=== PATIENT | male | born 1955 | race Hispanic/Latino ===

== ENCOUNTER 2017-09-11 22:11 | Inpatient (IN) | payer OTHER, SELFPAY ==
[~2017-09-11] VITALS: Ht 172.7 cm; Wt 90.4 kg
[2017-09-11] MEDS ORDERED: ONDANSETRON HCL MDV 20ML 2 MG/ML VIAL ONE (22:58)
[2017-09-11] MEDS ORDERED: SODIUM CHLORIDE 0.9% 1000ML 1,000 ML IV ONE (22:58)
[2017-09-11] MEDS ORDERED: MORPHINE SULFATE 4 MG/1ML SYG ONE ×2 (22:59→23:53)
[2017-09-11 23:26] LABS: BASOPHILS % (AUTO) 0.4 % (0.0-5.0); EOSINOPHILS % (AUTO) 0.4 % (0.0-8.0); HEMATOCRIT 47.1 % (42-54); LYMPHOCYTES % (AUTO) 10.8 % (21.0-51.0); MEAN CORPUSCULAR HGB CONC 33.9 g/dL (32.0-36.0); MEAN CORPUSCULAR VOLUME 91.3 fL (79-99); MONOCYTES % (AUTO) 8.4 % (3.0-13.0); PLATELET COUNT (AUTO) 242 K/uL (130-400); RED BLOOD CELL COUNT(AUTO) 5.16 MIL/uL (4.50-6.20); RED CELL DISTRIBUTION WIDTH 13.5 % (11.0-15.5); WHITE BLOOD COUNT (AUTO) 16.7 K/uL (4.8-10.8)
[2017-09-11 23:27] LABS: POTASSIUM 4.3 mmol/L (3.5-5.1)
[2017-09-11 23:29] LABS: CREATININE 3.7 mg/dL (0.5-1.5)
[2017-09-11 23:34] LABS: ALBUMIN 3.6 g/dL (3.5-5.0); BILIRUBIN,TOTAL 0.6 mg/dL (0.2-1.0); TOTAL PROTEIN, SERUM 7.5 g/dL (6.0-8.3)
[2017-09-11] MEDS ORDERED: LEVOFLOXACIN 500 MG/D5W 100 ML 100 ML ONE (23:53)
[2017-09-12] VITALS (10 sets, daily range): BP systolic 114–143; BP diastolic 68–95
[2017-09-12] MEDS ORDERED: MORPHINE SULFATE 4 MG/1ML SYG IM PRN
[2017-09-12] MEDS ORDERED: ONDANSETRON HCL MDV 20ML 2 MG/ML VIAL IVP PRN
[2017-09-12] MEDS ORDERED: HYDROMORPHONE 1 MG/1 ML AMP ONE (00:30)
[2017-09-12] MEDS: SODIUM CHLORIDE 0.9% 1000ML 1,000 ML IV SCH ×2 (04:30→17:28)
[2017-09-12] MEDS: ZOSYN 3.375GM+NS 50ML 50 ML IV SCH ×3 (05:46→20:43)
[2017-09-12] MEDS: MORPHINE SULFATE 4 MG/1ML SYG IVP PRN ×4 (06:45→21:28)
[2017-09-12] MEDS ORDERED: HYDROMORPHONE 1 MG/1 ML AMP IVP PRN (08:45)
[2017-09-12] MEDS ORDERED: SODIUM CHLORIDE 0.9% 1000ML 1,000 ML IV ONE (12:00)
[2017-09-12 12:18] LABS: HEMATOCRIT 44.2 % (42-54); MEAN CORPUSCULAR HEMOGLOBIN 30.8 pg (27.0-33.0); MEAN CORPUSCULAR HGB CONC 33.3 g/dL (32.0-36.0); MEAN CORPUSCULAR VOLUME 92.4 fL (79-99); PLATELET COUNT (AUTO) 229 K/uL (130-400); RED BLOOD CELL COUNT(AUTO) 4.78 MIL/uL (4.50-6.20); RED CELL DISTRIBUTION WIDTH 13.5 % (11.0-15.5); WHITE BLOOD COUNT (AUTO) 12.1 K/uL (4.8-10.8)
[2017-09-12] MEDS ORDERED: HYDROMORPHONE HCL 0.5 MG/0.5 ML ML ONE (12:37)
[2017-09-12 12:41] LABS: CREATININE 4.5 mg/dL (0.5-1.5); MAGNESIUM 2.8 mg/dL (1.80-2.40); POTASSIUM 4.3 mmol/L (3.5-5.1)
[2017-09-12 14:21] LABS: PARTIAL THROMBOPLASTIN TIME 30.3 SEC (26.3-35.5); PROTHROMBIN TIME 10.5 SEC (9.6-11.6)
[2017-09-12] MEDS ORDERED: LIDOCAINE HCL 1% 20 ML VIAL ONE ×2 (14:24→15:07)
[2017-09-12] MEDS ORDERED: ISOVUE-300 100 ML VIAL IV ONE (14:25)
[2017-09-12] MEDS ORDERED: FENTANYL CITRATE PF 50 MCG/1 ML 2ML VIAL ONE (14:57)
[2017-09-12 22:46] LABS: APPEARANCE,URINE Clear (CLEAR); BILIRUBIN,URINE Negative (NEGATIVE); COLOR,URINE Yellow (YELLOW); GLUCOSE, URINE (UA) Negative (NEGATIVE); KETONES,URINE Negative (NEGATIVE); LEUKOCYTE ESTERASE ,URINE Negative (NEGATIVE); NITRATE,URINE Negative (NEGATIVE); OCCULT BLOOD,URINE Large (NEGATIVE); PROTEIN,URINE Negative (NEGATIVE); UROBILINOGEN,URINE 0.2 mg/dL (0.2-1.0)
[2017-09-12 23:00] LABS: AMORPHOUS SEDIMENT,UR Moderate /LPF (None Seen); BACTERIA,URINE None Seen /HPF (None Seen); MUCUS,URINE Few LPF (None Seen); SQUAMOUS EPITHELIAL CELL,UR Moderate /HPF (0-2); WBC,URINE None Seen /HPF (0-1)
[2017-09-12] MEDS ORDERED: ACETAMINOPHEN 325 MG TAB PO PRN (23:30)
[2017-09-12] MEDS ORDERED: ACETAMINOPHEN 325 MG TAB ONE (23:30)
[2017-09-13] VITALS (23 sets, daily range): BP systolic 109–147; BP diastolic 56–82
[2017-09-13] MEDS: SODIUM CHLORIDE 0.9% 1000ML 1,000 ML IV SCH (05:29)
[2017-09-13] MEDS: ZOSYN 3.375GM+NS 50ML 50 ML IV SCH ×4 (05:29→20:57)
[2017-09-13 06:22] LABS: HEMATOCRIT 38.9 % (42-54); MEAN CORPUSCULAR HEMOGLOBIN 31.5 pg (27.0-33.0); MEAN CORPUSCULAR HGB CONC 34.4 g/dL (32.0-36.0); MEAN CORPUSCULAR VOLUME 91.7 fL (79-99); PLATELET COUNT (AUTO) 194 K/uL (130-400); RED BLOOD CELL COUNT(AUTO) 4.25 MIL/uL (4.50-6.20); RED CELL DISTRIBUTION WIDTH 13.3 % (11.0-15.5); WHITE BLOOD COUNT (AUTO) 11.2 K/uL (4.8-10.8)
[2017-09-13 06:46] LABS: MAGNESIUM 2.8 mg/dL (1.80-2.40); PHOSPHORUS 3.6 mg/dL (2.5-4.9); POTASSIUM 4.1 mmol/L (3.5-5.1)
[2017-09-13] MEDS: MORPHINE SULFATE 4 MG/1ML SYG IVP PRN ×2 (07:07→08:27)
[2017-09-13] MEDS ORDERED: HYDROMORPHONE HCL 0.5 MG/0.5 ML ML ONE (08:08)
[2017-09-13] MEDS ORDERED: HYDROMORPHONE HCL 0.5 MG/0.5 ML ML IVP SCH ×2 (09:15→11:15)
[2017-09-13] MEDS ORDERED: TRAMADOL HCL 50 MG TABLET PO PRN (09:45)
[2017-09-13] MEDS ORDERED: HYDROMORPHONE HCL 2 MG/ML VIAL IVP ONE (10:45)
[2017-09-13] MEDS ORDERED: HYDROMORPHONE HCL 2 MG/ML VIAL IVP SCH (11:00)
[2017-09-13] MEDS ORDERED: ISOVUE-370 50ML VIAL IV ONE (12:05)
[2017-09-13] MEDS ORDERED: MEPERIDINE-PF 25 MG/ML SYG ONE ×3 (12:20→14:37)
[2017-09-13] MEDS ORDERED: LIDOCAINE PF 2% 5ML ABBOJECT ONE (12:45)
[2017-09-13] MEDS ORDERED: FENTANYL CITRATE PF 50 MCG/1 ML 2ML VIAL ONE ×2 (12:45→13:18)
[2017-09-13] MEDS ORDERED: MIDAZOLAM HCL 1 MG/ML 2ML VIAL ONE (12:45)
[2017-09-13] MEDS ORDERED: PROPOFOL 10 MG/ML 20ML VIAL IV ONE (12:45)
[2017-09-13] MEDS ORDERED: DEXAMETHASONE SOD PHOSPHATE 10MG/ML 1ML VIAL ONE (12:45)
[2017-09-13] MEDS ORDERED: GLYCOPYRROLATE 0.2 MG/ML 5 ML VIAL ONE (12:45)
[2017-09-13] MEDS ORDERED: EPHEDRINE SULFATE 50 MG/ML AMPULE ONE (13:03)
[2017-09-13] MEDS: TAMSULOSIN HCL 0.4 MG CAP.ER.24H PO SCH (17:19)
[2017-09-13] MEDS: FOLIC ACID/VITAMIN B COMP W-C 1 MG CAPSULE PO SCH (17:19)
[2017-09-13] MEDS: HYDROMORPHONE HCL 0.5 MG/0.5 ML ML IVP PRN (23:32)
[2017-09-14 04:00] VITALS: BP 100/51
[2017-09-14] MEDS: ZOSYN 3.375GM+NS 50ML 50 ML IV SCH ×3 (05:03→21:15)
[2017-09-14] MEDS: HYDROMORPHONE HCL 0.5 MG/0.5 ML ML IVP PRN ×3 (05:49→21:16)
[2017-09-14 06:03] LABS: HEMATOCRIT 36.2 % (42-54); MEAN CORPUSCULAR HGB CONC 35.7 g/dL (32.0-36.0); MEAN CORPUSCULAR VOLUME 92.3 fL (79-99); PLATELET COUNT (AUTO) 196 K/uL (130-400); RED BLOOD CELL COUNT(AUTO) 3.92 MIL/uL (4.50-6.20); RED CELL DISTRIBUTION WIDTH 13.5 % (11.0-15.5); WHITE BLOOD COUNT (AUTO) 9.5 K/uL (4.8-10.8)
[2017-09-14 06:12] LABS: CREATININE 3.1 mg/dL (0.5-1.5); POTASSIUM 3.6 mmol/L (3.5-5.1)
[2017-09-14] MEDS: SODIUM CHLORIDE 0.9% 1000ML 1,000 ML IV SCH ×3 (08:09→21:15)
[2017-09-14] MEDS: FOLIC ACID/VITAMIN B COMP W-C 1 MG CAPSULE PO SCH (08:09)
[2017-09-14] MEDS: TAMSULOSIN HCL 0.4 MG CAP.ER.24H PO SCH (08:09)
[2017-09-14] MEDS: ACETAMINOPHEN-CODEINE 300/30MG TAB PO PRN (08:26)
[2017-09-14 09:27] VITALS: BP 110/73
[2017-09-14] MEDS: POTASSIUM CHLORIDE 20 MEQ ERTAB PO SCH (10:59)
[2017-09-14 12:10] VITALS: BP 132/71
[2017-09-14 15:49] VITALS: BP 108/69
[2017-09-14 19:54] VITALS: BP 152/80
[2017-09-14] MEDS: MEPERIDINE-PF 75 MG/ML SYG IM PRN (23:35)
[2017-09-14 23:52] VITALS: BP 148/86
[2017-09-15 04:00] VITALS: BP 123/68
[2017-09-15] MEDS: HYDROMORPHONE HCL 0.5 MG/0.5 ML ML IVP PRN ×4 (04:35→20:46)
[2017-09-15] MEDS: ZOSYN 3.375GM+NS 50ML 50 ML IV SCH ×3 (04:56→20:45)
[2017-09-15 06:42] LABS: CREATININE 2.3 mg/dL (0.5-1.5); POTASSIUM 4.1 mmol/L (3.5-5.1)
[2017-09-15 07:30] VITALS: BP 145/87
[2017-09-15] MEDS: FOLIC ACID/VITAMIN B COMP W-C 1 MG CAPSULE PO SCH (08:21)
[2017-09-15] MEDS: POTASSIUM CHLORIDE 20 MEQ ERTAB PO SCH (08:21)
[2017-09-15] MEDS: TAMSULOSIN HCL 0.4 MG CAP.ER.24H PO SCH (08:21)
[2017-09-15] MEDS: SODIUM CHLORIDE 0.9% 1000ML 1,000 ML IV SCH ×2 (08:25→20:46)
[2017-09-15] MEDS: ACETAMINOPHEN-CODEINE 300/30MG TAB PO PRN (08:34)
[2017-09-15 11:00] VITALS: BP 101/60
[2017-09-15 16:00] VITALS: BP 126/86
[2017-09-15 20:00] VITALS: BP 126/73
[2017-09-15] MEDS: OXYBUTYNIN CHLORIDE 5 MG TABLET PO PRN (22:33)
[2017-09-15 23:45] VITALS: BP 139/90
[2017-09-16] MEDS: MEPERIDINE-PF 75 MG/ML SYG IM PRN (00:35)
[2017-09-16 04:00] VITALS: BP 141/85
[2017-09-16] MEDS: ZOSYN 3.375GM+NS 50ML 50 ML IV SCH ×3 (05:02→22:19)
[2017-09-16 05:46] LABS: CREATININE 2.1 mg/dL (0.5-1.5); POTASSIUM 4.2 mmol/L (3.5-5.1)
[2017-09-16 08:00] VITALS: BP 137/85
[2017-09-16] MEDS: SODIUM CHLORIDE 0.9% 1000ML 1,000 ML IV SCH ×3 (08:54→22:43)
[2017-09-16] MEDS: TAMSULOSIN HCL 0.4 MG CAP.ER.24H PO SCH (08:55)
[2017-09-16] MEDS: HYDROMORPHONE HCL 0.5 MG/0.5 ML ML IVP PRN ×3 (08:55→23:56)
[2017-09-16] MEDS: FOLIC ACID/VITAMIN B COMP W-C 1 MG CAPSULE PO SCH (08:55)
[2017-09-16 10:14] LABS: APPEARANCE,URINE SL CLOUDY (CLEAR); BILIRUBIN,URINE NEGATIVE (NEGATIVE); COLOR,URINE RED (YELLOW); GLUCOSE, URINE (UA) NEGATIVE (NEGATIVE); KETONES,URINE NEGATIVE (NEGATIVE); LEUKOCYTE ESTERASE ,URINE SMALL (NEGATIVE); NITRATE,URINE NEGATIVE (NEGATIVE); OCCULT BLOOD,URINE LARGE (NEGATIVE); PH,URINE 5.5 (5.0-8.0); PROTEIN,URINE TRACE (NEGATIVE); UROBILINOGEN,URINE 0.2 mg/dL (0.2-1.0)
[2017-09-16 10:20] LABS: BACTERIA,URINE Rare /HPF (None Seen); RBC,URINE TNTC /HPF (0-1); SQUAMOUS EPITHELIAL CELL,UR Rare /HPF (0-2); WBC,URINE 0-1 /HPF (0-1)
[2017-09-16] MEDS: POTASSIUM CHLORIDE 20 MEQ ERTAB PO SCH (10:33)
[2017-09-16] MEDS: OXYBUTYNIN CHLORIDE 5 MG TABLET PO PRN (11:27)
[2017-09-16] MEDS: ACETAMINOPHEN-CODEINE 300/30MG TAB PO PRN (11:27)
[2017-09-16 14:20] VITALS: BP 143/76
[2017-09-16 17:52] VITALS: BP 140/74
[2017-09-16 20:00] VITALS: BP 125/72
[2017-09-17] VITALS: BP 139/83
[2017-09-17 04:00] VITALS: BP 145/75
[2017-09-17] MEDS: ZOSYN 3.375GM+NS 50ML 50 ML IV SCH ×2 (05:55→13:23)
[2017-09-17] MEDS: HYDROMORPHONE HCL 0.5 MG/0.5 ML ML IVP PRN (06:04)
[2017-09-17 06:28] LABS: BASOPHILS % (AUTO) 0.6 % (0.0-5.0); EOSINOPHILS % (AUTO) 7.3 % (0.0-8.0); LYMPHOCYTES % (AUTO) 22.9 % (21.0-51.0); MEAN CORPUSCULAR HEMOGLOBIN 31.5 pg (27.0-33.0); MEAN CORPUSCULAR HGB CONC 34.2 g/dL (32.0-36.0); MEAN CORPUSCULAR VOLUME 92.3 fL (79-99); MONOCYTES % (AUTO) 9.8 % (3.0-13.0); NEUTROPHILS % (AUTO) 59.4 % (40.0-77.0); PLATELET COUNT (AUTO) 239 K/uL (130-400); RED BLOOD CELL COUNT(AUTO) 4.01 MIL/uL (4.50-6.20); RED CELL DISTRIBUTION WIDTH 13.6 % (11.0-15.5); WHITE BLOOD COUNT (AUTO) 8.4 K/uL (4.8-10.8)
[2017-09-17 06:36] LABS: CREATININE 1.9 mg/dL (0.5-1.5); MAGNESIUM 1.7 mg/dL (1.80-2.40); PHOSPHORUS 3.7 mg/dL (2.5-4.9); POTASSIUM 4.1 mmol/L (3.5-5.1)
[2017-09-17 08:00] VITALS: BP 132/86
[2017-09-17] MEDS: ACETAMINOPHEN-CODEINE 300/30MG TAB PO PRN ×2 (09:37→18:09)
[2017-09-17] MEDS: TAMSULOSIN HCL 0.4 MG CAP.ER.24H PO SCH (09:38)
[2017-09-17] MEDS: FOLIC ACID/VITAMIN B COMP W-C 1 MG CAPSULE PO SCH (09:38)
[2017-09-17] MEDS: POTASSIUM CHLORIDE 20 MEQ ERTAB PO SCH (09:44)
[2017-09-17] MEDS: SODIUM CHLORIDE 0.9% 1000ML 1,000 ML IV SCH (13:24)
[2017-09-17 14:34] VITALS: BP 128/73
[2017-09-17] MEDS ORDERED: Folic Acid/Vitamin B Comp W-C PO (15:02)
[2017-09-17] MEDS ORDERED: TYL3B PO (15:02)
[2017-09-17] MEDS ORDERED: TAMS-1 PO (15:02)
[2017-09-17] MEDS ORDERED: OXYB5 PO (15:02)
[2017-09-17] MEDS ORDERED: AMOX-429 PO (15:04)
[2017-09-17 16:24] VITALS: BP 131/74
== END 2017-09-17 18:50 | disposition home or self-care (01) | DRG 853 ==
LOC: EDH 22:11 → EDHIP 23:52 → 4CH 09-12 01:58
PROVIDERS: ADMIT Internal Medicine Nephrology; ATTEND Internal Medicine Nephrology
PROC: 0TJB8ZZ Inspection of Bladder, Via Natural or Artificial Opening Endoscopic (ICD-10-PCS; principal; 2017-09-12)
PROC: 0T748DZ Dilation of Left Kidney Pelvis with Intraluminal Device, Via Natural or Artificial Opening Endoscopic (ICD-10-PCS; 2017-09-13 12:50)
DX: A41.9 Sepsis, unspecified organism (principal); N17.0 Acute kidney failure with tubular necrosis; N17.9 Acute kidney failure, unspecified; N13.2 Hydronephrosis with renal and ureteral calculous obstruction; F12.90 Cannabis use, unspecified, uncomplicated; D64.9 Anemia, unspecified; E66.9 Obesity, unspecified; F17.200 Nicotine dependence, unspecified, uncomplicated; I12.9 Hypertensive chronic kidney disease with stage 1 through stage 4 chronic kidney disease, or unspecified chronic kidney disease; N18.9 Chronic kidney disease, unspecified; R31.0 Gross hematuria
CPT/HCPCS: 10030; 36415; 50432; 74176; 74420; 76870; 80048; 80053; 81001; 82360; 83735; 83970; 84100; 84550; 85025; 85027; 85610; 85730; 87040; 87088; 88300; 93005; A4218; A4344; A4606; C1729; C1751; C1758; C1769; C1894; C2617; J1100; J1170; J1644; J1956; J2001; J2175; J2250; J2270; J2543; J2704; J3010; J3490; J7030; Q9967

== ENCOUNTER 2017-10-04 19:18 | Emergency (ER) | payer OTHER ==
[~2017-10-04 19:18] MED LIST: AMOX-429 PO; Folic Acid/Vitamin B Comp W-C PO; OXYB5 PO; TAMS-1 PO; TYL3B PO
[2017-10-04 19:56] LABS: APPEARANCE,URINE Cloudy (CLEAR); BILIRUBIN,URINE Negative (NEGATIVE); COLOR,URINE Yellow (YELLOW); GLUCOSE, URINE (UA) Negative (NEGATIVE); KETONES,URINE Negative (NEGATIVE); LEUKOCYTE ESTERASE ,URINE Large (NEGATIVE); NITRATE,URINE Negative (NEGATIVE); OCCULT BLOOD,URINE Small (NEGATIVE); PROTEIN,URINE POS 2+ (NEGATIVE); UROBILINOGEN,URINE 0.2 mg/dL (0.2-1.0)
[2017-10-04 20:11] LABS: TRIPLE PHOSPHATE CRYSTAL,UR Rare /LPF (None Seen)
[2017-10-04 20:12] LABS: BACTERIA,URINE Moderate /HPF (None Seen); YEAST,URINE BUDDING Few /HPF (None Seen)
[2017-10-04] MEDS ORDERED: MORPHINE SULFATE 4 MG/1ML SYG ONE (21:19)
[2017-10-04] MEDS ORDERED: ONDANSETRON ODT 4 MG TAB ONE (21:19)
== END 2017-10-04 22:36 | disposition home or self-care (01) ==
LOC: EDH 19:18
DX: R10.9 Unspecified abdominal pain (principal); Z76.0 Encounter for issue of repeat prescription; Z90.49 Acquired absence of other specified parts of digestive tract; Z79.899 Other long term (current) drug therapy
CPT/HCPCS: 81001; 96372; 99283; J2270

== ENCOUNTER 2017-11-14 21:45 | Emergency (ER) | payer OTHER ==
[2017-11-14 22:11] LABS: BASOPHILS % (AUTO) 0.8 % (0.0-5.0); EOSINOPHILS % (AUTO) 7.6 % (0.0-8.0); HEMATOCRIT 42.2 % (42-54); LYMPHOCYTES % (AUTO) 38.9 % (21.0-51.0); MEAN CORPUSCULAR HEMOGLOBIN 31.4 pg (27.0-33.0); MEAN CORPUSCULAR HGB CONC 34.9 g/dL (32.0-36.0); MONOCYTES % (AUTO) 5.7 % (3.0-13.0); NUCLEATED RED BLOOD CELLS 0.1 % (0.0-0.19); PLATELET COUNT (AUTO) 353 K/uL (130-400); RED BLOOD CELL COUNT(AUTO) 4.69 MIL/uL (4.50-6.20); RED CELL DISTRIBUTION WIDTH 13.6 % (11.0-15.5); WHITE BLOOD COUNT (AUTO) 9.3 K/uL (4.8-10.8)
[2017-11-14 22:24] LABS: CREATININE 1.8 mg/dL (0.5-1.5); POTASSIUM 3.7 mmol/L (3.5-5.1)
[2017-11-14] MEDS ORDERED: KETOROLAC TROMETHAMINE 30MG/ML ONE (22:25)
[2017-11-14 22:29] LABS: BILIRUBIN,TOTAL 0.1 mg/dL (0.2-1.0); TOTAL PROTEIN, SERUM 7.2 g/dL (6.0-8.3)
[2017-11-14 22:35] LABS: APPEARANCE,URINE Turbid (CLEAR); BILIRUBIN,URINE Negative (NEGATIVE); COLOR,URINE Yellow (YELLOW); GLUCOSE, URINE (UA) Negative (NEGATIVE); KETONES,URINE Negative (NEGATIVE); LEUKOCYTE ESTERASE ,URINE Large (NEGATIVE); NITRATE,URINE Negative (NEGATIVE); OCCULT BLOOD,URINE Large (NEGATIVE); PROTEIN,URINE 300 (NEGATIVE); UROBILINOGEN,URINE 0.2 mg/dL (0.2-1.0)
[2017-11-14 22:42] LABS: BACTERIA,URINE Many /HPF (None Seen); MUCUS,URINE Few LPF (None Seen); RBC,URINE 26-50 /HPF (0-1); SQUAMOUS EPITHELIAL CELL,UR None Seen /HPF (0-2); WBC,URINE TNTC /HPF (0-1)
[2017-11-14 23:06] LABS: CREATINE KINASE MB 0.7 ng/mL (0.5-3.6)
[2017-11-15] MEDS ORDERED: TRAMADOL HCL 50 MG TABLET ONE (00:06)
[2017-11-15] MEDS ORDERED: CEFTRIAXONE SODIUM 1 GM ONE (00:06)
== END 2017-11-15 00:25 | disposition home or self-care (01) ==
LOC: EDH 21:45
DX: N39.0 Urinary tract infection, site not specified (principal); N20.0 Calculus of kidney; R10.84 Generalized abdominal pain; R03.0 Elevated blood-pressure reading, without diagnosis of hypertension; Z79.899 Other long term (current) drug therapy; Z72.0 Tobacco use; Z98.890 Other specified postprocedural states
CPT/HCPCS: 36415; 74176; 80053; 81001; 82150; 82553; 83690; 84484; 85025; 87088; 87186; 93005; 96374; 96375; 99285; J0696; J1885

== ENCOUNTER 2019-07-13 04:34 | Inpatient (IN) | payer OTHER ==
[~2019-07-13] VITALS: Ht 172.7 cm; Wt 97.5 kg
[2019-07-13] MEDS ORDERED: ONDANSETRON HCL 4 MG/2 ML VIAL ONE ×2 (05:10→09:48)
[2019-07-13] MEDS ORDERED: MORPHINE SULFATE 2 MG/ML 1ML SYG ONE ×2 (05:10→15:26)
[2019-07-13 05:20] LABS: BASOPHILS % (AUTO) 0.3 % (0.0-5.0); EOSINOPHILS % (AUTO) 0.4 % (0.0-8.0); HEMATOCRIT 47.7 % (42-54); LYMPHOCYTES % (AUTO) 9.1 % (21.0-51.0); MEAN CORPUSCULAR HEMOGLOBIN 30.7 pg (27.0-33.0); MEAN CORPUSCULAR VOLUME 90.5 fL (79-99); MONOCYTES % (AUTO) 9.3 % (3.0-13.0); NEUTROPHILS % (AUTO) 80.2 % (40.0-77.0); PLATELET COUNT (AUTO) 241 K/uL (130-400); RED BLOOD CELL COUNT(AUTO) 5.27 MIL/uL (4.50-6.20); RED CELL DISTRIBUTION WIDTH 13.1 % (11.0-15.5); WHITE BLOOD COUNT (AUTO) 18.2 K/uL (4.8-10.8)
[2019-07-13 05:28] LABS: POTASSIUM 5.3 mmol/L (3.5-5.1)
[2019-07-13 05:30] LABS: BILIRUBIN,URINE Negative (NEGATIVE); COLOR,URINE Dark Yellow (YELLOW); GLUCOSE, URINE (UA) Negative (NEGATIVE); KETONES,URINE Negative (NEGATIVE); LEUKOCYTE ESTERASE ,URINE Moderate (NEGATIVE); NITRATE,URINE Negative (NEGATIVE); OCCULT BLOOD,URINE Large (NEGATIVE); PROTEIN,URINE 300 mg/dL (NEGATIVE)
[2019-07-13 05:33] LABS: ALBUMIN 2.9 g/dL (3.5-5.0); BILIRUBIN,TOTAL 1.1 mg/dL (0.2-1.0); TOTAL PROTEIN, SERUM 8.1 g/dL (6.0-8.3)
[2019-07-13 05:35] LABS: APPEARANCE,URINE TURBID (CLEAR)
[2019-07-13 05:36] LABS: RBC,URINE >100 /HPF (0-1)
[2019-07-13 05:37] LABS: BACTERIA,URINE Few /HPF (None Seen); SQUAMOUS EPITHELIAL CELL,UR Rare /HPF (0-2)
[2019-07-13 05:38] LABS: WBC,URINE >100 /HPF (0-1)
[2019-07-13] MEDS ORDERED: CEFTRIAXONE SODIUM 1 GM ONE (06:17)
[2019-07-13] MEDS ORDERED: MORPHINE SULFATE 4 MG/1ML SYG ONE ×2 (06:18→09:48)
[2019-07-13] MEDS: SODIUM CHLORIDE 0.9% 1000ML 1,000 ML IV SCH ×3 (06:52→19:51)
[2019-07-13] MEDS ORDERED: ONDANSETRON HCL 4 MG/2 ML VIAL IV PRN (07:00)
[2019-07-13] MEDS ORDERED: HYDRALAZINE HCL 20 MG/ML VIAL IV PRN (07:00)
[2019-07-13 07:20] LABS: MAGNESIUM 2.3 mg/dL (1.80-2.40); PHOSPHORUS 3.4 mg/dL (2.5-4.9)
[2019-07-13] MEDS ORDERED: ZOSYN 3.375GM+NS 50ML 50 ML IV ONE ×2 (08:15→15:10)
[2019-07-13] MEDS ORDERED: FAMOTIDINE/PF 20 MG/2 ML VIAL IV ONE (08:16)
[2019-07-13] MEDS ORDERED: SODIUM CHLORIDE 0.9% 1000ML 1,000 ML IV ONE (08:17)
[2019-07-13] MEDS: FAMOTIDINE/PF 20 MG/2 ML VIAL IV SCH (09:00)
--- NOTE | 2019-07-13 10:21 | NUR ---
INITIAL SW met with patient. Patient states he lives with his , Kerrie Villanueva, [phone]. No home services or DME. Patient is able to complete ADL's independently but does not drive. PCP is Dr. Juni Landeros. Pharmacy is [facility] located on [facility]. DCP is home. Patient has no insurance or benefits. He is a [place] citizen and has worked in the [place]. Patient states that he is pending disability in a few weeks. Patient is being assisted by [facility]. SW provided patient with community resources for post hospitalization follow up. Patient was also provided with Good RX card for prescriptions and educated on [employer] $4 medication program and [employer] $5 medication program. Addendum: 07/13/19 at 1025 by JASEN RUSSO SS Amended: Links added.
[2019-07-13] MEDS: ZOSYN 3.375GM+NS 50ML 50 ML IV SCH ×2 (13:00→19:51)
[2019-07-13 17:22] VITALS: BP 130/79
[2019-07-13 20:00] VITALS: BP 128/74
--- NOTE | 2019-07-13 20:00 | NUR ---
ROUNDS VISITED WITH PATIENT AND SPOUSE AT BEDSIDE. POC DISCUSSED. NEW ORDERS RECEIVED AND CARRIED OUT. VITALS STABLE. AFEBRILE AT THIS TIME. RESP EVEN AND UNLABORED. NO SOB NOTED. ON ROOM AIR. NS INFUSING AT 125ML/HR. VOIDING WITHOUT DIFFICULTY OR COMPLAINTS OF DYSURIA. ALL QUESTIONS ANSWERED BY . HOB ELEVATED. CALL LIGHT WITHIN REACH. WILL CONTINUE TO BE OBSERVED. Addendum: 07/14/19 at 9629 by YAZMIN FIELDS RN RN Amended: Links added.
[2019-07-13] MEDS: MORPHINE SULFATE 4 MG/1ML SYG IV PRN (20:18)
[2019-07-13 21:02] LABS: INR 1.05 (0.85-1.15); PARTIAL THROMBOPLASTIN TIME 34.9 SEC (26.3-35.5)
[2019-07-13 23:55] VITALS: BP 112/70
[2019-07-14] VITALS (13 sets, daily range): BP systolic 100–154; BP diastolic 55–95
[2019-07-14] MEDS: MORPHINE SULFATE 4 MG/1ML SYG IV PRN ×5 (00:16→18:52)
[2019-07-14] MEDS: SODIUM CHLORIDE 0.9% 1000ML 1,000 ML IV SCH ×2 (04:28→17:53)
[2019-07-14] MEDS: ZOSYN 3.375GM+NS 50ML 50 ML IV SCH ×3 (04:28→21:23)
[2019-07-14 04:49] LABS: BASOPHILS % (AUTO) 0.4 % (0.0-5.0); EOSINOPHILS % (AUTO) 1.2 % (0.0-8.0); HEMATOCRIT 41.8 % (42-54); MEAN CORPUSCULAR HEMOGLOBIN 31.2 pg (27.0-33.0); MEAN CORPUSCULAR HGB CONC 34.2 g/dL (32.0-36.0); MEAN CORPUSCULAR VOLUME 91.1 fL (79-99); MONOCYTES % (AUTO) 12.8 % (3.0-13.0); PLATELET COUNT (AUTO) 214 K/uL (130-400); RED BLOOD CELL COUNT(AUTO) 4.59 MIL/uL (4.50-6.20); RED CELL DISTRIBUTION WIDTH 13.3 % (11.0-15.5); WHITE BLOOD COUNT (AUTO) 11.7 K/uL (4.8-10.8)
[2019-07-14 05:01] LABS: CREATININE 2.3 mg/dL (0.5-1.5); POTASSIUM 4.2 mmol/L (3.5-5.1)
[2019-07-14] MEDS: FAMOTIDINE/PF 20 MG/2 ML VIAL IV SCH (09:13)
--- NOTE | 2019-07-14 09:45 | NUR ---
SMOKING IN ROOM WENT INTO PATIENTS ROOM AND I NOTICED THE SMELL OF TOBACCO. I ASKED PATIENT IF HE WAS SMOKING IN HIS ROOM AND PATIENT DENIED SMOKING. I INFORMED PATIENT THAT SMOKING IS NOT ALLOWED IN PATIENT ROOMS OR INSIDE THE HOSPITAL AT ALL. EDUCATED PATIENT ON SMOKING CESSATION. PATIENT CONTINUED TO DENY THAT HE WAS SMOKING.
--- NOTE | 2019-07-14 11:00 | NUR ---
DR. MICK PEDROZA ROUNDING. INFORMED OF DR. MCCRACKEN PLAN FOR RIGHT NEPHROSTOMY TUBE PLACEMENT. ALSO INFORMED OF PRELIMINARY URINE CULTURE RESULTS. TOLD PATIENT SHE COULD ORDER NICOTINE PATCH FOR SMOKING URGE AND PATIENT REFUSED.
[2019-07-14] MEDS ORDERED: IODIXANOL 320 MG/ML 100 ML VIAL ONE (11:16)
[2019-07-14] MEDS ORDERED: MIDAZOLAM HCL 1 MG/ML 2ML VIAL ONE (11:16)
[2019-07-14] MEDS ORDERED: FENTANYL CITRATE PF 50 MCG/1 ML 2ML VIAL ONE (11:17)
[2019-07-14] MEDS ORDERED: LIDOCAINE HCL 1% MDV 50ML VIAL ONE (11:17)
[2019-07-14] MEDS ORDERED: PHARMACY COMMUNICATION MISC SCH (12:30)
[2019-07-14] MEDS ORDERED: ACETAMINOPHEN 325 MG TAB ONE (17:37)
--- NOTE | 2019-07-14 17:40 | NUR ---
ELEVATED TEMP CALLED DR. BARTON TOO REPORT TEMPERATURE READING 101.5 F. OBTAIN TO/RB FOR PRN MED FOR FEVER. ALSO REPLIED TO KEEP PATIENT ON CURRENT ANTIBIOTICS FOR NOW.
[2019-07-14] MEDS ORDERED: ACETAMINOPHEN 325 MG TAB PO PRN (17:45)
[2019-07-14] MEDS: SODIUM CHLORIDE 0.9% 10 ML VIAL IVP SCH (21:00)
[2019-07-14] MEDS: MORPHINE SULFATE 2 MG/ML 1ML SYG IV PRN (23:03)
[2019-07-15] MEDS: MORPHINE SULFATE 4 MG/1ML SYG IV PRN ×3 (02:56→22:37)
[2019-07-15 03:49] VITALS: BP 110/73
[2019-07-15] MEDS: ZOSYN 3.375GM+NS 50ML 50 ML IV SCH ×3 (05:57→22:37)
[2019-07-15 08:00] VITALS: BP 124/65
[2019-07-15] MEDS: FAMOTIDINE/PF 20 MG/2 ML VIAL IV SCH (10:40)
[2019-07-15] MEDS: MORPHINE SULFATE 2 MG/ML 1ML SYG IV PRN ×3 (10:40→18:22)
[2019-07-15] MEDS: SODIUM CHLORIDE 0.9% 10 ML VIAL IVP SCH ×2 (10:41→21:00)
[2019-07-15 12:03] VITALS: BP 130/71
[2019-07-15] MEDS: SODIUM CHLORIDE 0.9% 1000ML 1,000 ML IV SCH (15:01)
[2019-07-15 16:00] VITALS: BP 117/72
[2019-07-15] MEDS ORDERED: LACTULOSE 20 GM/30 ML UDCUP ONE (17:03)
[2019-07-15] MEDS: LACTULOSE 20 GM/30 ML UDCUP PO PRN (17:13)
[2019-07-15 19:35] VITALS: BP 122/60
[2019-07-15 23:18] VITALS: BP 132/77
[2019-07-16] MEDS: SODIUM CHLORIDE 0.9% 1000ML 1,000 ML IV SCH ×2 (02:01→13:35)
[2019-07-16] MEDS: MORPHINE SULFATE 4 MG/1ML SYG IV PRN (02:06)
[2019-07-16 03:42] VITALS: BP 108/65
[2019-07-16 04:02] LABS: BASOPHILS % (AUTO) 0.5 % (0.0-5.0); HEMATOCRIT 37.9 % (42-54); LYMPHOCYTES % (AUTO) 20.3 % (21.0-51.0); MEAN CORPUSCULAR HEMOGLOBIN 30.7 pg (27.0-33.0); MEAN CORPUSCULAR VOLUME 90.2 fL (79-99); MONOCYTES % (AUTO) 12.2 % (3.0-13.0); NEUTROPHILS % (AUTO) 62.5 % (40.0-77.0); PLATELET COUNT (AUTO) 237 K/uL (130-400); RED CELL DISTRIBUTION WIDTH 13.2 % (11.0-15.5); WHITE BLOOD COUNT (AUTO) 8.7 K/uL (4.8-10.8)
[2019-07-16 04:20] LABS: CREATININE 1.8 mg/dL (0.5-1.5); POTASSIUM 4.1 mmol/L (3.5-5.1)
[2019-07-16] MEDS: ZOSYN 3.375GM+NS 50ML 50 ML IV SCH ×3 (05:19→20:57)
[2019-07-16] MEDS ORDERED: HYDROMORPHONE HCL 0.5 MG/0.5 ML ML IVP ONE (05:30)
[2019-07-16 08:12] VITALS: BP 116/76
[2019-07-16] MEDS: FAMOTIDINE/PF 20 MG/2 ML VIAL IV SCH (08:58)
[2019-07-16] MEDS: MORPHINE SULFATE 2 MG/ML 1ML SYG IV PRN ×4 (08:59→21:04)
[2019-07-16] MEDS: SODIUM CHLORIDE 0.9% 10 ML VIAL IVP SCH ×2 (09:00→21:00)
[2019-07-16 12:06] VITALS: BP 108/74
[2019-07-16 16:00] VITALS: BP 100/62
[2019-07-16 20:08] VITALS: BP 113/69
[2019-07-17 00:08] VITALS: BP 122/76
[2019-07-17] MEDS: MORPHINE SULFATE 4 MG/1ML SYG IV PRN (00:44)
[2019-07-17 03:53] LABS: BASOPHILS % (AUTO) 0.4 % (0.0-5.0); EOSINOPHILS % (AUTO) 5.1 % (0.0-8.0); MEAN CORPUSCULAR HEMOGLOBIN 30.3 pg (27.0-33.0); MEAN CORPUSCULAR HGB CONC 33.3 g/dL (32.0-36.0); MEAN CORPUSCULAR VOLUME 90.9 fL (79-99); MONOCYTES % (AUTO) 10.3 % (3.0-13.0); NEUTROPHILS % (AUTO) 59.5 % (40.0-77.0); PLATELET COUNT (AUTO) 266 K/uL (130-400); RED BLOOD CELL COUNT(AUTO) 4.29 MIL/uL (4.50-6.20); RED CELL DISTRIBUTION WIDTH 13.5 % (11.0-15.5); WHITE BLOOD COUNT (AUTO) 8.6 K/uL (4.8-10.8)
[2019-07-17 04:08] VITALS: BP 123/74
[2019-07-17] MEDS: ZOSYN 3.375GM+NS 50ML 50 ML IV SCH (04:10)
[2019-07-17] MEDS: SODIUM CHLORIDE 0.9% 1000ML 1,000 ML IV SCH ×2 (04:10→15:30)
[2019-07-17 04:17] LABS: ALBUMIN 2.2 g/dL (3.5-5.0); BILIRUBIN,TOTAL 0.4 mg/dL (0.2-1.0); CREATININE 1.8 mg/dL (0.5-1.5); POTASSIUM 3.7 mmol/L (3.5-5.1); TOTAL PROTEIN, SERUM 6.7 g/dL (6.0-8.3)
[2019-07-17] MEDS: MORPHINE SULFATE 2 MG/ML 1ML SYG IV PRN ×2 (04:51→09:03)
[2019-07-17] MEDS: LACTULOSE 20 GM/30 ML UDCUP PO PRN (04:51)
[2019-07-17 08:05] VITALS: BP 121/82
[2019-07-17] MEDS: FAMOTIDINE/PF 20 MG/2 ML VIAL IV SCH (09:02)
[2019-07-17] MEDS: SODIUM CHLORIDE 0.9% 10 ML VIAL IVP SCH (09:02)
[2019-07-17 11:02] VITALS: BP 103/65
[2019-07-17] MEDS ORDERED: TRAMADOL HCL 50 MG TABLET PO PRN (11:15)
[2019-07-17] MEDS ORDERED: ACETAMINOPHEN-CODEINE 300/30MG TAB PO PRN (11:30)
[2019-07-17] MEDS ORDERED: CEFTRIAXONE SODIUM 1 GM IVP SCH (12:15)
--- NOTE | 2019-07-17 17:02 | NUR ---
DISCHARGE PATIENT GIVEN DISCHARGE INSTRUCTIONS AND EDUCATION ON FOLLOW UP APPOINTMENTS AND NEPHROSTOMY TUBE CARE. PATIENT VERBALIZED UNDERSTANDING OF ALL EDUCATION GIVEN VIA TEACH BACK, EXIT CARE MATERIAL PROVIDED. IV DISCONTINUED, CATHETER INTACT. NO DISTRESS NOTED UPON DISCHARGE. ALL BELONGINGS TAKEN WITH.
== END 2019-07-17 16:27 | disposition home or self-care (01) | DRG 871 ==
LOC: EDH 04:34 → EDHIP 04:35 → 4BH 16:38
PROVIDERS: ADMIT Internal Medicine; ATTEND Internal Medicine
PROC: 0T9030Z Drainage of Right Kidney with Drainage Device, Percutaneous Approach (ICD-10-PCS; principal; 2019-07-14)
PROC: 0T25X0Z Change Drainage Device in Kidney, External Approach (ICD-10-PCS; 2019-07-16)
PROC: BT121ZZ Fluoroscopy of Left Kidney using Low Osmolar Contrast (ICD-10-PCS; 2019-07-16)
DX: A41.50 Gram-negative sepsis, unspecified (principal); N17.0 Acute kidney failure with tubular necrosis; N13.6 Pyonephrosis; E66.9 Obesity, unspecified; Z68.32 Body mass index [BMI] 32.0-32.9, adult; F17.200 Nicotine dependence, unspecified, uncomplicated; F43.10 Post-traumatic stress disorder, unspecified; Z82.49 Family history of ischemic heart disease and other diseases of the circulatory system; Z83.3 Family history of diabetes mellitus; Z87.442 Personal history of urinary calculi; Z82.5 Family history of asthma and other chronic lower respiratory diseases
CPT/HCPCS: 36415; 50432; 74176; 76942; 80048; 80053; 81001; 82550; 83605; 83690; 83735; 84100; 84145; 84484; 85025; 85610; 85730; 87040; 87071; 87077; 87088; 87186; 87205; 93005; 99156; 99157; C1769; C1894; G0378; J0696; J1170; J1644; J2250; J2270; J2405; J2543; J3010; J3490; J7030; Q9967